=== PATIENT | male | born 1995 | race Caucasian/White ===

== ENCOUNTER 2021-05-09 19:48 | Emergency (ER) | payer OTHER | END 2021-05-09 22:25 | disposition home or self-care (01) | LOC: ER1 19:48 | DX: N34.2 Other urethritis (principal); J45.909 Unspecified asthma, uncomplicated; F17.210 Nicotine dependence, cigarettes, uncomplicated; Z90.89 Acquired absence of other organs | CPT/HCPCS: 81001; 87086; 99283 ==